=== PATIENT | male | born 1990 | race Caucasian/White ===

== ENCOUNTER 2021-06-16 18:55 | Observation (INO) ==
[2021-06-16] MEDS ORDERED: Ketorolac 15 MG/ML VIAL IVP ONE (22:19)
[2021-06-16 22:58] LABS: Basophils # 0.1 K/mcL (0.0-0.2); Basophils % 0.2 %; Eosinophils # 0.3 K/mcL (0.0-0.6); Eosinophils % 1.2 %; Hematocrit 43.6 % (37.5-50.1); Hemoglobin 14.4 g/dL (12.9-16.9); Immature Granulocytes % 0.5 % (0-4); Lymphocytes # 2.5 K/mcL (0.6-4.6); Lymphocytes % 12.4 %; Mean Corpuscular Hemoglobin 25.9 pg (28.0-33.3); Mean Corpuscular Volume 78.3 fL (83.0-100.0); Monocytes # 1.7 K/mcL (0.0-1.3); Monocytes % 8.5 %; Neutrophils # 15.7 K/mcL (1.6-8.9); Platelet Count 309 K/mcL (140-400); Red Blood Count 5.57 M/mcL (4.19-5.50); Red Cell Distribution Width 13.4 % (11.5-14.5); Segmented Neutrophils % 77.2 %; White Blood Count 20.3 K/mcL (4.3-11.1)
[2021-06-17 00:42] LABS: Chloride 104 mEq/L (98-107); Potassium 3.9 mEq/L (3.5-5.1); Sodium 138 mEq/L (136-145)
[2021-06-17 00:43] LABS: BUN/Creatinine Ratio 12 (6-26); Blood Urea Nitrogen 12 mg/dL (6-20); Calcium 9.8 mg/dL (8.6-10.3); Glucose 99 mg/dL (70-105); Osmolality,Calculated 286 (280-300); Uric Acid 9.7 mg/dL (2.3-7.6); eGFR For African Americans > 60 (> 60); eGFR For Non-African Americans > 60 (> 60)
[2021-06-17 01:13] LABS: Carbon Dioxide 23 mEq/L (23-29)
[2021-06-17] MEDS ORDERED: Isovue-370 500 ML BOTTLE IVP ONE (01:57)
[2021-06-17] MEDS ORDERED: Lidocaine 1% 20 ML MDV INFILT ONE (03:15)
[2021-06-17] MEDS ORDERED: ceFAZolin 1,000 MG in Water for inj. (sterile) 10 ML IVP ONE (03:34)
[2021-06-17] MEDS ORDERED: Melatonin 3 MG TABLET PO PRN (04:54)
[2021-06-17] MEDS ORDERED: Ondansetron 4 MG/2 ML VIAL IVP PRN (04:54)
[2021-06-17] MEDS ORDERED: Naloxone 0.4 MG/ML INJ IVP PRN (04:54)
[2021-06-17] MEDS ORDERED: *HR* OxyCODONE Immed Rel 5 MG TABLET PO PRN (04:54)
[2021-06-17] MEDS ORDERED: Acetaminophen 325 MG TABLET PO PRN (04:54)
[2021-06-17] MEDS ORDERED: Ketorolac 15 MG/ML VIAL IVP PRN ×2 (04:57→19:20)
[2021-06-17] MEDS ORDERED: Colchicine 0.6 MG TABLET PO ONE (06:20)
[2021-06-17 06:26] LABS: Appearance,Synovial Fluid Hazy (Clear-Hazy); Color,Synovial Fluid Red (Straw)
[2021-06-17 08:23] LABS: Basophils % 0.2 %; Eosinophils # 0.2 K/mcL (0.0-0.6); Eosinophils % 0.8 %; Hematocrit 39.1 % (37.5-50.1); Hemoglobin 13.4 g/dL (12.9-16.9); Immature Granulocytes % 0.4 % (0-4); Lymphocytes % 10.9 %; Mean Corpuscular HGB Conc 34.3 g/dL (31.6-35.5); Mean Corpuscular Hemoglobin 26.4 pg (28.0-33.3); Mean Platelet Volume 11.2 fL (9.4-12.4); Monocytes # 1.8 K/mcL (0.0-1.3); Monocytes % 10.2 %; Neutrophils # 13.9 K/mcL (1.6-8.9); Platelet Count 274 K/mcL (140-400); Red Blood Count 5.08 M/mcL (4.19-5.50); Red Cell Distribution Width 13.5 % (11.5-14.5); Segmented Neutrophils % 77.5 %; White Blood Count 17.9 K/mcL (4.3-11.1)
[2021-06-17 08:54] LABS: BUN/Creatinine Ratio 10 (6-26); Blood Urea Nitrogen 10 mg/dL (6-20); Calcium 9.6 mg/dL (8.6-10.3); Carbon Dioxide 25 mEq/L (23-29); Chloride 105 mEq/L (98-107); Glucose 113 mg/dL (70-105); Osmolality,Calculated 286 (280-300); Sodium 138 mEq/L (136-145); eGFR For African Americans > 60 (> 60); eGFR For Non-African Americans > 60 (> 60)
[2021-06-17] MEDS: lisinopriL 20 MG TABLET PO SCH (15:16)
[2021-06-18 07:27] VITALS: BP 161/93; PULSE 74; TEMP 98.4; O2SAT 98
[2021-06-18] MEDS: lisinopriL 20 MG TABLET PO SCH (08:53)
[2021-06-18] MEDS ORDERED: predniSONE 20 MG TABLET PO SCH (09:00)
[2021-06-19 14:34] LABS: C-Reactive Protein 58 mg/L (Less than 10)
== END 2021-06-18 12:15 | disposition home or self-care (01) ==
LOC: EMEROOARM 18:55 → 3BNU 18:55 → SUATTDRO 06-17 14:10 → 3BNU 06-17 15:03
PROVIDERS: ADMIT Internal Medicine; ATTEND Internal Medicine